=== PATIENT | female | born 2000 | race Caucasian/White ===

== ENCOUNTER 2018-06-25 15:28 | Outpatient (CLI) | payer OTHER ==
--- NOTE | 2018-06-25 16:14 | RAD ---
RIGHT FOOT THREE VIEWS: 06/25/18 HISTORY: Pain. Bone abnormality. COMPARISON: None. FINDINGS: Lisfranc alignment is maintained. Joint spaces are preserved. Nondisplaced fracture involving the mid dle phalanx of the fourth digit. IMPRESSION: Nondisplaced fracture involving the middle phalanx of the fourth digit. Code T POS: MIKE
== END 2018-06-25 15:29 | disposition home or self-care (01) ==
LOC: RAD 15:28
PROVIDERS: ATTEND Pediatrics
DX: M79.671 Pain in right foot (principal); S92.524A Nondisplaced fracture of middle phalanx of right lesser toe(s), initial encounter for closed fracture